=== PATIENT | female | born 1970 | race Caucasian/White ===

== ENCOUNTER 2017-02-12 07:41 | Inpatient (IN) ==
[2017-02-12] MEDS ORDERED: DICYCLOMINE 20 MG/2 ML AMP IM ONE ×2 (08:08→08:41)
[2017-02-12] MEDS ORDERED: ONDANSETRON 4 MG/2 ML VIAL IV STA (08:08)
[2017-02-12] MEDS ORDERED: METOCLOPRAMIDE 10 MG/2 ML VIAL IV STA (08:08)
[2017-02-12] MEDS ORDERED: SODIUM CHLORIDE 0.9% 1,000 ML IV STA (08:08)
[2017-02-12] MEDS ORDERED: PANTOPRAZOLE 40 MG VIAL IV STA (08:08)
[2017-02-12] MEDS ORDERED: metroNIDAZOLE INJ 500 MG in PREMIX 1 EACH IV STA (08:08)
--- NOTE | 2017-02-12 08:13 | Emergency Department Note ---
Arrival - Arrival Chief Complaint: Abdominal / Flank Pain Stated Complaint: abd pain/n/v ED Nursing Triage Note: c/o having abd.pain since tuesday., states went to see SOFTWARE ENGINEER antoine on Tuesday and had labs done., states still did not feel good on tuesday., states on tuesday she was called and told that had a high white count of 15 and was told to come back in on tue., states went back in on tue. had h- pylori test and it was negative., was started on pcn., states her abd. is swelling and bloating., states she is still having nausea and vomiting., + diarrhea., temp up to 101 at home., Mode of Arrival: Ambulatory Limitations: No Limitations Source: Patient Time Seen by Provider: 02/12/17 08:08 - History of Present Illness HPI Narrative: This 46-year-old white female presents with one-week of nausea, intermittent vomiting, generalized crampy abdominal pain, and several loose stools a day. She denies melena, bright red blood in the stool, history of inflammatory bowel disease, history of pancreatitis, gallbladder problems, or peptic ulcer disease. She does have in the last week a negative H. pylori serology. She was seen by her nurse practitioner several days ago who began her on penicillin and obtained the negative H. pylori test. At that time she states she was told she had a white count of 15,000. She states she has had shaking chills and spiked temperatures up to 101 at home. Currently she is in no acute medical distress although uncomfortable. Onset (ago): week(s) (Patient presents 1 week post onset of symptoms) Allergies/Adverse Reactions: Allergies Allergy/AdvReac Type Severity Reaction Status Date / Time No Known Allergies Allergy Unverified 02/12/17 07:50 Home Medications: Home Medications Medication Instructions Recorded Confirmed Type Loratadine Tab [Claritin Tab] 10 mg PO DAILY 02/12/17 02/12/17 History Omeprazole [Prilosec] 20 mg PO DAILY 02/12/17 02/12/17 History Penicillin Vk Tab 500 mg PO TID 02/12/17 02/12/17 History Review of System - Review of System 12 point system: reviewed and no additional remarkable complaints except as stated - Review of System Constitutional: Present: as per HPI Gastrointestinal: Present: as per HPI Medical,Surgical,& Family Hx - Medical History Neurology: History of: Migraine - Social History Smoking Status: Never smoker Frequency of Alcohol Use: None Type of Drug Use: None Exam Physical Examination: GENERAL: Well developed, well nourished white female in no acute distress. HEENT: Normocephalic. No trauma. Moist mucous membranes. EOMI. PERRLA. ENT NML NECK: Supple. No adenopathy. CARDIAC: Regular. No murmurs. Heart rate 80 CHEST: Clear to auscultation. No respiratory distress. O2 sat 90% ABDOMEN: Soft. Diffusely tender. Hyperactive bowel sounds. EXTREMITIES: No trauma. Normal ROM. No pedal edema. SKIN: No diaphoresis. No rash. NEURO: Alert. Neuro intact per no focal deficits. Vital Signs: Vital Signs Temperature 98.9 F 02/12/17 07:44 Pulse Rate 79 02/12/17 07:44 Respiratory Rate 16 02/12/17 07:44 Blood Pressure 104/85 02/12/17 07:44 O2 Sat by Pulse Oximetry 99 02/12/17 07:44 Course - Reevaluation(s) Reevaluation #1: Discussed with patient the need for hospitalization given the appearance on CT of most likely diverticulitis with associated abscess. - Consultations Consultation #1: Discussed with radiologist findings on CT and he felt the patient had either diverticulitis with abscess formation or a Crohn's variant. Consultation #2: Discussed with Dr. Liao who will admit the patient for further evaluation treatment. Results - Labs CBC & BMP: 02/12/17 08:17 02/12/17 08:17 Labs: I reviewed the laboratory noted the borderline white blood cell count as well as the elevated lactic acid. - Diagnostic Findings Procedure: CT Abdomen and Pelvis: image reviewed by me, report reviewed by me ( Evidence of diverticulitis with abscess formation versus a Crohn's variant) Disposition Clinical Impression: Diverticulitis with abscess Case discussed with: patient, patient's family Disposition: Still a Patient Condition: Stable Time of Disposition: 11:47
[2017-02-12] MEDS ORDERED: PANTOPRAZOLE 40 MG VIAL IV ONE (08:32)
[2017-02-12] MEDS ORDERED: ONDANSETRON 4 MG/2 ML VIAL ONE (08:32)
[2017-02-12] MEDS ORDERED: METOCLOPRAMIDE 10 MG/2 ML VIAL ONE (08:32)
[2017-02-12] MEDS ORDERED: metroNIDAZOLE 500 MG/100 ML PREMIX IV ONE (08:33)
[2017-02-12 08:38] LABS: Basophils % 0.3 % (0.0-0.8); Eosinophils # 0.1 10*3/uL (0.0-0.87); Eosinophils % 0.5 % (0.00-10.9); Hematocrit 43.4 VOL% (35.7-47.0); Hemoglobin 15.1 GM/DL (12.0-16.0); Immature Granulocytes % 0.7 %; Immature Granulocytes Absolute 0.08 #; Lymphocytes # 1.1 10*3/uL (1.4-4.0); Lymphocytes % 10.1 % (21.3-54.2); Mean Corpuscular HGB Conc 34.8 GM/DL (32-36); Mean Corpuscular Hemoglobin 33 PG (27-34); Mean Corpuscular Volume 93.3 FL (87-102); Mean Platelet Volume 9.8 FL (9.6-12.0); Monocytes # 0.7 10*3/uL (0.11-0.8); Monocytes % 6.1 % (1.7-12.7); Neutrophils # 9.1 10*3/uL (1.4-7.4); Neutrophils % 82.3 % (38.7-73.9); Platelet Count 270 T/CUMM (130-400); Red Blood Count 4.65 MC/CUMM (3.8-5.5); Red Cell Distribution Width 11.9 % (9.3-17.3); White Blood Count 11.1 T/CUMM (4-12)
[2017-02-12 08:55] LABS: Lactic Acid 3.2 MMOL/L (0.4-2.0)
[2017-02-12 09:05] LABS: Troponin I Only < 0.015 NG/ML (0.00-0.045)
[2017-02-12 09:06] LABS: Albumin 3.4 G/DL (3.4-5.0); Bilirubin,Total 0.4 MG/DL (0.2-1.0); Calcium 8.9 MG/DL (8.5-10.1); Osmolality,Calculated 283.1 MOS/KG (273-304); Potassium 4.1 MMOL/L (3.5-5.1); Total Protein 6.9 G/DL (6.4-8.3)
[2017-02-12 09:12] LABS: Apearance,Urine Slightly Hazy (Clear); Bacteria,Urine Occasional /HPF (Few); Bilirubin,Urine Negative (Negative); Blood, Urine Negative (Negative); Glucose,Urine (UA) Negative (Negative); Hyaline Casts,Urine 1 /LPF (0-3); Ketones,Urine 20 mg/dL (Negative); Mucus,Urine Many /LPF (Occasional); Nitrite,Urine Negative (Negative); Protein,Urine Negative; RBC,Urine 3 /HPF (0-4); Squamous Epithelial Cell,Urine Occasional /HPF (0-10); Urine Color Yellow (Yellow); Urine Specific Gravity 1.021 (1.001-1.035); WBC,Urine 8 /HPF (0-6)
--- NOTE | 2017-02-12 11:07 | CT Report ---
CT abdomen pelvis Indication: Abdominal and pelvic pain Comparison: None available Technique: Axial CT imaging of the abdomen and pelvis is performed with intravenous and oral contrast. Contrast dose is 100 cc of Omnipaque 350. Findings: Cardiac and lung bases are within normal limits CT abdomen: Small amount of perihepatic and perisplenic fluid is seen. Otherwise the liver spleen pancreas and adrenal glands are normal in size and enhancement. No evidence of focal lesion is demonstrated in these solid organs. Kidneys are normal in size and enhancement. No evidence of hydronephrosis or nephrolithiasis is seen. Prominent loops of ileum are present this extends into the pelvis and involves terminal ileum. Small amount of free fluid is seen in the paracolic gutters. Proximal bowel caliber is normal and no wall thickening or adjacent inflammatory change is seen. No evidence of free fluid or free air is present. CT pelvis: Multiple diverticula are present in the sigmoid colon with some wall thickening and adjacent stranding. Small pockets of low density are present between the sigmoid colon and ileum, the largest pocket is estimated 1.4 cm in size. Small amount of free fluid is seen in the pelvis. Bladder shows no evidence of abnormality. The pelvic organs show no evidence of abnormality Impression: Diverticulitis as described above. Small pocket of fluid 1.4 cm in size is present between the sigmoid colon and ileum. The ileum is moderately distended and thickened. This CT exam was performed using one or more the following dose reduction techniques: Automated exposure control, adjustment of the MA and/or KV according to patient size, or use of iterative reconstruction technique. PROCEDURE INTERPRETED AT [facility] [place] DEPARTMENT OF RADIOLOGY Final Report Signed by: Dr. Justice Soria
[2017-02-12] MEDS ORDERED: ALUM/MAG/SIMETH/LIDO VISC 1:1 30 ML BOTTLE PO ONE (11:15)
[2017-02-12] MEDS ORDERED: HYDROmorphone 2 MG/1 ML VIAL IV PRN (11:49)
[2017-02-12] MEDS: CIPROFLOXACIN INJ 400 MG in PREMIX 1 EACH IV SCH ×2 (13:26→23:00)
[2017-02-12] MEDS: SODIUM CHLORIDE 0.45% 1,000 ML IV SCH (13:26)
[2017-02-12] MEDS: METOCLOPRAMIDE 10 MG/2 ML VIAL IV SCH ×3 (13:27→22:59)
[2017-02-12] MEDS: metroNIDAZOLE INJ 500 MG in PREMIX 1 EACH IV SCH ×2 (15:33→21:11)
--- NOTE | 2017-02-12 17:11 | General Surg History&Physical ---
Assessment and Plan (1) Diverticulitis of large intestine with abscess Status: Acute Assessment and plan: Impression: Sigmoid diverticulitis with small abscess next Plan: I reviewed the lab work CT images and report. She has diverticular disease. Small bowel looks abnormal and dilated which may be reactive to the inflammatory process. She appears to be tolerating clear liquids currently. She will go slow with these. Will admit her for antibiotics and monitor and hopefully be able to avoid surgery. Current Visit: Yes History of Present Illness Chief complaint: Abdominal pain History of present illness: Ms. Rankin is a 46 year old female who is in her normal state of good health until Tuesday when she began to experience epigastric and suprapubic abdominal pain. She also had diarrhea. The following day she developed a fever. She was checked for H. pylori and started on antibiotics as an outpatient of what I believe was penicillin but did not improve. She came to the emergency room because the pain worsened. CT scan performed and was suspicious for diverticulitis with a small abscess. [place] and since her admission she says her pain has improved. She is on a clear liquid diet and had some nausea and vomiting yesterday but none today and she is tolerating it well. She is never had any bloody bowel movements or any irregular bowel movements or any chronic abdominal pain. Home Medications Medication Instructions Recorded Confirmed Type Loratadine Tab [Claritin Tab] 10 mg PO DAILY 02/12/17 02/12/17 History Omeprazole [Prilosec] 20 mg PO DAILY 02/12/17 02/12/17 History Penicillin Vk Tab 500 mg PO TID 02/12/17 02/12/17 History Allergies Allergy/AdvReac Type Severity Reaction Status Date / Time No Known Allergies Allergy Unverified 02/12/17 07:50 Medical,Surgical,& Family Hx - Medical History Cardio: Comment Only: Cardiovascular Problems (had palpitations and used to take meds , subsided since) Neurology: History of: Migraine HEENT: History of: Eye Problem (wears glasses) Musculoskeletal: No history of: Amputation Reproductive: History of: Ectopic - Surgical History Cardiac Surgeries: Patient Denies: Cardiac Catheterization Thoracic Surgeries: Patient denies;: Organ Transplant, Lobectomy Neurologic Surgeries: Patient denies: Neurologic Surgery HEENT Surgeries: Patient denies: Eye Surgery, Tonsilectomy & Adenoidectomy Abdominal Surgeries: Surgical HX of: Abdominal Surgery, Cholecystectomy Reproductive Surgeries: Surgical HX of;: Breast Surgery, Section, Dilation and Curettage, Tubal Ligation Patient denies;: Genitourinary Surgery - Social History Smoking Status: Never smoker Frequency of Alcohol Use: None Type of Drug Use: None Exam - Constitutional Vitals: Period Temp Pulse Resp BP Sys/Matute Pulse Ox Last 24 Hr 98.3 F-99.3 F 65-85 16-18 100-108/66-70 95-97 General appearance: no acute distress - Head Head exam: Present: normocephalic - ENT Mouth exam: Present: normal external inspection - Neck Neck exam: Present: normal inspection - Respiratory Respiratory exam: Present: clear to auscultation bilaterally - Cardiovascular Cardiovascular exam: Present: RRR - GI/Abdominal GI/Abdominal exam: Present: soft (Moderate tenderness to palpation in suprapubic area. Other areas of the abdomen are nontender. She is nondistended. No peritoneal signs.) - Extremities Exam Extremities exam: Present: normal inspection - Back Exam Back exam: Present: normal inspection - Neurological Exam Neurological exam: Present: alert, oriented X3 Speech: Present: normal - Skin Skin exam: Present: normal color Results - Labs CBC & BMP: 02/12/17 08:17 02/12/17 08:17 Lab Results: I have reviewed the past 24 hour labs
[2017-02-12] MEDS: ONDANSETRON 4 MG/2 ML VIAL IV PRN (21:11)
[2017-02-13] MEDS: SODIUM CHLORIDE 0.45% 1,000 ML IV SCH ×3 (01:01→09:30)
[2017-02-13] MEDS: metroNIDAZOLE INJ 500 MG in PREMIX 1 EACH IV SCH ×4 (03:49→20:50)
[2017-02-13] MEDS: CIPROFLOXACIN INJ 400 MG in PREMIX 1 EACH IV SCH ×3 (05:56→21:57)
[2017-02-13] MEDS: METOCLOPRAMIDE 10 MG/2 ML VIAL IV SCH ×4 (05:57→23:45)
[2017-02-13 06:47] LABS: Basophils # 0.1 10*3/uL (0.0-0.2); Basophils % 0.5 % (0.0-0.8); Eosinophils # 0.3 10*3/uL (0.0-0.87); Eosinophils % 2.4 % (0.00-10.9); Hematocrit 35.3 VOL% (35.7-47.0); Hemoglobin 12.7 GM/DL (12.0-16.0); Immature Granulocytes % 1.2 %; Immature Granulocytes Absolute 0.12 #; Lymphocytes # 2.3 10*3/uL (1.4-4.0); Lymphocytes % 22.2 % (21.3-54.2); Mean Corpuscular Hemoglobin 33 PG (27-34); Mean Corpuscular Volume 92.7 FL (87-102); Mean Platelet Volume 10.1 FL (9.6-12.0); Monocytes # 0.8 10*3/uL (0.11-0.8); Monocytes % 7.6 % (1.7-12.7); Neutrophils # 6.8 10*3/uL (1.4-7.4); Neutrophils % 66.1 % (38.7-73.9); Platelet Count 253 T/CUMM (130-400); Red Blood Count 3.81 MC/CUMM (3.8-5.5); White Blood Count 10.4 T/CUMM (4-12)
[2017-02-13 07:23] LABS: Calcium 8.1 MG/DL (8.5-10.1); Potassium 3.9 MMOL/L (3.5-5.1)
[2017-02-13] MEDS: ACETAMINOPHEN 325 MG TABLET PO PRN (11:34)
--- NOTE | 2017-02-13 11:43 | General Surgery Progress Note ---
Assessment and Plan (1) Diverticulitis of large intestine with abscess Status: Acute Assessment and plan: Impression: Sigmoid diverticulitis with small abscess next Plan: Patient would like to try regular diet. We will advance her diet. Continue antibiotics. Possibly home in the day or 2 if she continues to improve. Current Visit: Yes Subjective Patient reports: Present: no new complaints Narrative: Patient is feeling better. She tolerated clears with some nausea last night but none today. Overall she is feeling much better. She has had 2 loose bowel movements this morning. Exam - Constitutional Vitals: Period Temp Pulse Resp BP Sys/Matute Pulse Ox Last 24 Hr 97.9 F-99.5 F 61-85 12-18 100-112/65-75 95-97 General appearance: no acute distress - Head Head exam: Present: normocephalic - ENT Mouth exam: Present: normal external inspection - Neck Neck exam: Present: normal inspection - Respiratory Respiratory exam: Present: clear to auscultation bilaterally - Cardiovascular Cardiovascular exam: Present: RRR - GI/Abdominal GI/Abdominal exam: Present: soft (Moderate suprapubic tenderness mildly improved , no peritoneal signs) - Extremities Exam Extremities exam: Present: normal inspection - Neurological Exam Neurological exam: Present: alert, oriented X3 Speech: Present: normal - Skin Skin exam: Present: normal color Results - Labs CBC & BMP: 02/13/17 05:56 02/13/17 05:56 Lab Results: I have reviewed the past 24 hour labs
[2017-02-13] MEDS: ONDANSETRON 4 MG/2 ML VIAL IV PRN (12:11)
[2017-02-14] MEDS: metroNIDAZOLE INJ 500 MG in PREMIX 1 EACH IV SCH ×4 (02:48→20:45)
[2017-02-14] MEDS: SODIUM CHLORIDE 0.45% 1,000 ML IV SCH (02:49)
[2017-02-14] MEDS: METOCLOPRAMIDE 10 MG/2 ML VIAL IV SCH ×4 (05:46→23:00)
[2017-02-14] MEDS: CIPROFLOXACIN INJ 400 MG in PREMIX 1 EACH IV SCH ×3 (05:47→22:50)
--- NOTE | 2017-02-14 09:51 | General Surgery Progress Note ---
Assessment and Plan (1) Diverticulitis of large intestine with abscess Status: Acute Assessment and plan: Continues to improve. Continue IV abx and diet as tolerated. D/c IVF. Repeat labs in am and monitor an additional day. DVT ppx: SCD. Hold lovenox with drop in H/H - likely dilutional. Mobilizing encouraged and pt is tolerating. GI ppx: PPI daily Dispo: anticipate home tomorrow with expected continued clinical improvement Current Visit: Yes Subjective Patient reports: Present: no new complaints, pain is less, tolerating a regular diet, voiding w/o difficulty (Persistent loose stools - 3-4 in 24 hrs. No hematochezia or melena. ), afebrile Exam - Constitutional Vitals: Period Temp Pulse Resp BP Sys/Matute Pulse Ox Last 24 Hr 97.7 F-99.6 F 50-69 12-20 92-112/66-77 93-99 General appearance: no acute distress - Head Head exam: Present: normal inspection, normocephalic, atraumatic - Eye Eye exam: Absent: conjunctival injection, scleral icterus - Neck Neck exam: Present: trachea midline - Respiratory Respiratory exam: Present: clear to auscultation bilaterally - Cardiovascular Cardiovascular exam: Present: RRR - GI/Abdominal GI/Abdominal exam: Present: normal bowel sounds, tenderness (LLQ - suprapubic minimal tenderness; no palpable lmass), soft. Absent: distended, guarding - Extremities Exam Extremities exam: Absent: edema - Neurological Exam Neurological exam: Present: alert, oriented X3 - Skin Skin exam: Present: normal color, warm Results - Labs CBC & BMP: 02/13/17 05:56 02/13/17 05:56 Labs: Urine culture 20-30K gram negative rods Quality Measures - VTE Contraindication to Pharmacological VTE Prophylaxis: High Risk of Bleeding
[2017-02-14] MEDS: ACETAMINOPHEN 325 MG TABLET PO PRN (10:18)
[2017-02-14] MEDS: PANTOPRAZOLE 40 MG TABLET PO SCH (10:18)
[2017-02-15] MEDS: metroNIDAZOLE INJ 500 MG in PREMIX 1 EACH IV SCH ×2 (03:54→09:12)
[2017-02-15 03:56] LABS: Basophils % 0.5 % (0.0-0.8); Eosinophils # 0.3 10*3/uL (0.0-0.87); Eosinophils % 3.3 % (0.00-10.9); Hematocrit 33.4 VOL% (35.7-47.0); Hemoglobin 11.5 GM/DL (12.0-16.0); Immature Granulocytes % 2.1 %; Immature Granulocytes Absolute 0.17 #; Lymphocytes # 2.3 10*3/uL (1.4-4.0); Lymphocytes % 28.7 % (21.3-54.2); Mean Corpuscular HGB Conc 34.4 GM/DL (32-36); Mean Corpuscular Hemoglobin 32 PG (27-34); Mean Corpuscular Volume 91.8 FL (87-102); Mean Platelet Volume 10.1 FL (9.6-12.0); Monocytes # 0.7 10*3/uL (0.11-0.8); Monocytes % 8.1 % (1.7-12.7); Neutrophils # 4.7 10*3/uL (1.4-7.4); Neutrophils % 57.3 % (38.7-73.9); Platelet Count 236 T/CUMM (130-400); Red Blood Count 3.64 MC/CUMM (3.8-5.5); Red Cell Distribution Width 11.9 % (9.3-17.3); White Blood Count 8.1 T/CUMM (4-12)
[2017-02-15] MEDS: CIPROFLOXACIN INJ 400 MG in PREMIX 1 EACH IV SCH (05:01)
[2017-02-15] MEDS: METOCLOPRAMIDE 10 MG/2 ML VIAL IV SCH (05:02)
--- NOTE | 2017-02-15 08:56 | Discharge Summary ---
Hospital Course - Hospital Course Hospital Course: 46 y/o female admitted with initial diverticulitis flare. She responded well to IV abx. Ultimately discharged home in good condition with single loose stool in past 24 hrs, tolerating PO intake and activity without difficulty, and voiding without difficulty. Pain adequately controlled. No complications to note. Pt will f/u and further discuss elective removal of diseased colon. Diagnosis - Discharge Diagnosis (1) Diverticulitis of large intestine with abscess Status: Acute Specialty Discharge - Follow Up or Referrals Follow up with: Roman Dunbar MD [Physician] - 2 Weeks Discharge Plan - Discharge Data Disposition: Disch To Home/Self Care Condition at Discharge: Stable Discharge Diet: other (See attached) Activity: resume usual activities as tolerated Driving: other (No driving while taking narcotics) Contact your physician if you experience:: fever over 101, Difficulty voiding, Redness or swelling, Nausea/Vomiting, Shortness of breath, Bleeding, pain uncontrolled by pain medications - Discharge Medications New Ciprofloxacin Tab [Cipro Tab] 500 mg PO BID #28 tablet RX: HYDROcodone/ACETAMIN 7.5-325 [[place] 7.5-325] 1 tablet PO Q4H PRN #20 tablet PRN Reason: Pain Moderate To Severe (4-10) metroNIDAZOLE TAB [Flagyl Cap/Tab] 500 mg PO TID #42 tablet Continue RX: Loratadine Tab [Claritin Tab] 10 mg PO DAILY RX: Omeprazole [Prilosec] 20 mg PO DAILY Discontinued RX: Penicillin Vk Tab 500 mg PO TID - Follow Up or Referral Follow Up: Roman Dunbar MD [Physician] - 2 Weeks - Forms/Instructions Instructions: Diverticulitis (DC), Diverticulitis Diet (DC) Exam - Constitutional Vitals: Period Temp Pulse Resp BP Sys/Matute Pulse Ox Last 24 Hr 98.1 F-98.8 F 45-77 16-20 99-115/64-77 97-100 General appearance: no acute distress - Head Head exam: Present: normal inspection, normocephalic, atraumatic - Eye Eye exam: Absent: conjunctival injection, scleral icterus - Respiratory Respiratory exam: Present: clear to auscultation bilaterally - Cardiovascular Cardiovascular exam: Present: regular rate and rhythm - GI/Abdominal GI/Abdominal exam: Present: normal bowel sounds, tenderness (minimal suprapubic) , soft. Absent: distended, firm - Extremities Exam Extremities exam: Absent: calf tenderness, edema - Neurological Exam Neurological exam: Present: alert, oriented X3 - Psychiatric Psychiatric exam: Present: normal affect, normal mood Discharge Results Procedures and tests throughout hospitalization: Urine culture: 20-30K klebsiella - sensitive to cipro Labs on day of discharge: Labs from last 24 hours 02/15/17 03:33 WBC 8.1 RBC 3.64 L Hgb 11.5 L Hct 33.4 L MCV 91.8 MCH 32 MCHC 34.4 RDW 11.9 Plt Count 236 MPV 10.1 Neut % (Auto) 57.3 Lymph % (Auto) 28.7 [place]clain % (Auto) 8.1 Eos % (Auto) 3.3 Baso % (Auto) 0.5 Neut # (Auto) 4.7 Lymph # (Auto) 2.3 [place]clain # (Auto) 0.7 Eos # (Auto) 0.3 Baso # (Auto) 0.0 Immature Gran % 2.1 Nucleated RBC % 0.0 Immature Gran # 0.17 Nucleated RBCs # 0.00 DS: Provider Date of admission: 02/12/17 11:48 Primary care physician: . No PCP Attending physician on admission: Roman Dunbar MD Discharging clinician: Yessi Ortiz PA-C
[2017-02-15] MEDS: PANTOPRAZOLE 40 MG TABLET PO SCH (09:09)
[2017-02-15 11:31] VITALS: BP 119/70
== END 2017-02-15 11:31 | disposition home or self-care (01) | DRG 392 ==
LOC: N.ED 07:41 → N.EDINP 11:48 → N.3E 12:58
PROVIDERS: ADMIT Surgery; ATTEND Surgery

== ENCOUNTER 2017-12-06 05:58 | Inpatient (IN) ==
[2017-11-28 16:09] LABS: Basophils # 0.1 10*3/uL (0.0-0.2); Basophils % 0.7 % (0.0-0.8); Eosinophils # 0.1 10*3/uL (0.0-0.87); Eosinophils % 1.4 % (0.00-10.9); Hemoglobin 14.6 GM/DL (12.0-16.0); Immature Granulocytes Absolute 0.08 #; Lymphocytes # 2.3 10*3/uL (1.4-4.0); Lymphocytes % 28.9 % (21.3-54.2); Mean Corpuscular HGB Conc 34.8 GM/DL (32-36); Mean Corpuscular Hemoglobin 32 PG (27-34); Mean Corpuscular Volume 92.9 FL (87-102); Mean Platelet Volume 10.3 FL (9.6-12.0); Monocytes # 0.5 10*3/uL (0.11-0.8); Monocytes % 6.1 % (1.7-12.7); Neutrophils % 61.9 % (38.7-73.9); Platelet Count 247 T/CUMM (130-400); Red Blood Count 4.52 MC/CUMM (3.8-5.5)
[2017-11-28 16:42] LABS: Albumin 4.5 G/DL (3.4-5.0); Bilirubin,Total 0.5 MG/DL (0.2-1.0); Calcium 9.3 MG/DL (8.5-10.1); Osmolality,Calculated 273.5 MOS/KG (273-304); Potassium 4.8 MMOL/L (3.5-5.1)
[2017-12-06] MEDS ORDERED: DIAZEPAM 5 MG TABLET PO ONE ×2 (06:00→07:04)
[2017-12-06] MEDS ORDERED: ALVIMOPAN 12 MG CAPSULE PO ONE (06:00)
[2017-12-06] MEDS ORDERED: FAMOTIDINE 20 MG TABLET PO ONE (06:00)
[2017-12-06] MEDS ORDERED: ERTAPENEM IV ONE (06:00)
[2017-12-06] MEDS ORDERED: FAMOTIDINE 20 MG TABLET ONE (06:12)
[2017-12-06] MEDS ORDERED: ERTAPENEM 1,000 MG VIAL ONE (06:12)
[2017-12-06] MEDS ORDERED: ALVIMOPAN 12 MG CAPSULE ONE ×2 (06:12→06:44)
[2017-12-06] MEDS ORDERED: DIAZEPAM 5 MG TABLET ONE ×2 (06:42→07:08)
[2017-12-06] MEDS: LACTATED RINGERS 1,000 ML IV SCH ×5 (06:46→16:15)
[2017-12-06] MEDS ORDERED: TISSUE ADHESIVE 1 EACH APPLICATOR TOP ONE (08:54)
[2017-12-06] MEDS ORDERED: SEVOFLURANE 1 UNIT/15 MINUTE INH ONE (14:08)
[2017-12-06] MEDS ORDERED: fentaNYL 100 MCG/2 ML VIAL ONE (14:08)
[2017-12-06] MEDS ORDERED: MIDAZOLAM 2 MG/2 ML VIAL ONE (14:08)
[2017-12-06] MEDS ORDERED: PROPOFOL 200 MG/20 ML VIAL IV ONE (14:08)
[2017-12-06] MEDS ORDERED: ACETAMINOPHEN 1,000 MG/100 ML VIAL IV ONE (14:09)
[2017-12-06] MEDS ORDERED: LACTATED RINGERS 2,000 ML IV ONE (14:09)
[2017-12-06] MEDS ORDERED: KETOROLAC 30 MG/1 ML VIAL ONE (14:09)
[2017-12-06] MEDS ORDERED: ROCURONIUM 100 MG/10 ML VIAL IV ONE (14:09)
[2017-12-06] MEDS ORDERED: GLYCOPYRROLATE 0.4 MG/2 ML VIAL ONE (14:09)
[2017-12-06] MEDS ORDERED: HYDROmorphone 2 MG/1 ML VIAL IV PRN ×2 (15:03→15:45)
[2017-12-06] MEDS ORDERED: ONDANSETRON 4 MG/2 ML VIAL IV PRN ×2 (15:03→15:45)
[2017-12-06] MEDS ORDERED: ONDANSETRON 4 MG/2 ML VIAL ONE (15:04)
[2017-12-06] MEDS ORDERED: HYDROmorphone 2 MG/1 ML VIAL ONE (15:04)
[2017-12-06] MEDS ORDERED: PROMETHAZINE 25 MG/1 ML VIAL IM PRN (15:45)
[2017-12-06] MEDS: KETOROLAC 15 MG/1 ML VIAL IV SCH ×2 (16:15→21:30)
[2017-12-06] MEDS ORDERED: [UNRECOGNIZED DRUG - OTHER] PO SCH (21:00)
[2017-12-06] MEDS: ALVIMOPAN 12 MG CAPSULE PO SCH (21:30)
[2017-12-07] MEDS: LACTATED RINGERS 1,000 ML IV SCH (01:25)
[2017-12-07] MEDS: KETOROLAC 15 MG/1 ML VIAL IV SCH ×2 (04:28→09:51)
[2017-12-07 05:57] LABS: Basophils # 0.1 10*3/uL (0.0-0.2); Basophils % 0.4 % (0.0-0.8); Eosinophils % 0.3 % (0.00-10.9); Hematocrit 32.8 VOL% (35.7-47.0); Hemoglobin 11.1 GM/DL (12.0-16.0); Immature Granulocytes % 0.6 %; Immature Granulocytes Absolute 0.07 #; Lymphocytes # 1.8 10*3/uL (1.4-4.0); Lymphocytes % 14.9 % (21.3-54.2); Mean Corpuscular HGB Conc 33.8 GM/DL (32-36); Mean Corpuscular Hemoglobin 32 PG (27-34); Mean Corpuscular Volume 95.3 FL (87-102); Mean Platelet Volume 10.5 FL (9.6-12.0); Monocytes % 8.4 % (1.7-12.7); Neutrophils # 8.8 10*3/uL (1.4-7.4); Neutrophils % 75.4 % (38.7-73.9); Platelet Count 179 T/CUMM (130-400); Red Blood Count 3.44 MC/CUMM (3.8-5.5); Red Cell Distribution Width 12.3 % (9.3-17.3); White Blood Count 11.7 T/CUMM (4-12)
[2017-12-07] MEDS ORDERED: ENOXAPARIN 40 MG/0.4 ML SYRINGE SUBCUT SCH (07:50)
[2017-12-07 07:51] LABS: Osmolality,Calculated 276.4 MOS/KG (273-304)
[2017-12-07] MEDS ORDERED: LORATADINE 10 MG TABLET PO SCH (09:00)
[2017-12-07] MEDS: ALVIMOPAN 12 MG CAPSULE PO SCH (09:51)
[2017-12-07 11:00] VITALS: BP 90/57
[2017-12-07 12:09] LABS: Hematocrit 36.7 VOL% (35.7-47.0); Hemoglobin 12.3 GM/DL (12.0-16.0)
== END 2017-12-07 14:40 | disposition home or self-care (01) | DRG 331 ==
LOC: N.OR 05:58 → N.SDSINP 06:00 → N.3E 13:48
PROVIDERS: ADMIT Surgery; ATTEND Surgery

== ENCOUNTER 2021-08-22 19:09 | Observation (INO) ==
[2021-08-22] MEDS ORDERED: ASPIRIN 325 MG TABLET PO STA (20:01)
[2021-08-22] MEDS ORDERED: ONDANSETRON 4 MG/2 ML VIAL IV STA (20:01)
[2021-08-22] MEDS ORDERED: SODIUM CHLORIDE 0.9% 1,000 ML IV STA (20:01)
[2021-08-22 20:14] LABS: Basophils % 0.2 % (0.0-0.8); Eosinophils % 0.1 % (0.00-10.9); Hematocrit 37.7 VOL% (35.7-47.0); Hemoglobin 13.3 GM/DL (12.0-16.0); Immature Granulocytes % 0.5 %; Immature Granulocytes Absolute 0.07 #; Lymphocytes # 1.5 10*3/uL (1.4-4.0); Lymphocytes % 11.7 % (21.3-54.2); Mean Corpuscular HGB Conc 35.3 GM/DL (32-36); Mean Corpuscular Volume 90.2 FL (87-102); Mean Platelet Volume 9.8 FL (9.6-12.0); Monocytes % 4.4 % (1.7-12.7); Neutrophils % 83.1 % (38.7-73.9); Platelet Count 286 T/CUMM (130-400); Red Blood Count 4.18 MC/CUMM (3.8-5.5); Red Cell Distribution Width 11.6 % (9.3-17.3); White Blood Count 13.1 T/CUMM (4-12)
[2021-08-22 20:20] LABS: Calcium 8.4 MG/DL (8.5-10.1); Osmolality,Calculated 239.3 MOS/KG (273-304); Potassium 3.6 MMOL/L (3.5-5.1)
[2021-08-22] MEDS ORDERED: MAGNESIUM SULF RIDER 2 GM/50 ML PREMIX IV ONE (20:32)
[2021-08-22 20:57] LABS: Free T4 (Free Thyroxine) 1.09 NG/DL (0.76-1.46); Thyroid Stimulating Hormone 0.855 uIU/ml (0.358-3.74)
[2021-08-22] MEDS ORDERED: PROMETHAZINE INJ 12.5 MG in SODIUM CHLORIDE 0.9% 50 ML IV PRN (22:41)
[2021-08-22] MEDS ORDERED: PROMETHAZINE 25 MG/1 ML VIAL ONE (22:56)
[2021-08-22] MEDS ORDERED: SODIUM CHLORIDE 0.9% 1,000 ML IV SCH (23:00)
[2021-08-23 01:39] LABS: Basophils % 0.2 % (0.0-0.8); Calcium 7.4 MG/DL (8.5-10.1); Eosinophils # 0.1 10*3/uL (0.0-0.87); Eosinophils % 0.9 % (0.00-10.9); Hematocrit 34.4 VOL% (35.7-47.0); Hemoglobin 12.2 GM/DL (12.0-16.0); Immature Granulocytes % 0.5 %; Immature Granulocytes Absolute 0.06 #; Lymphocytes # 1.6 10*3/uL (1.4-4.0); Lymphocytes % 13.9 % (21.3-54.2); Mean Corpuscular HGB Conc 35.5 GM/DL (32-36); Mean Corpuscular Volume 91.2 FL (87-102); Mean Platelet Volume 9.8 FL (9.6-12.0); Monocytes % 6.8 % (1.7-12.7); Neutrophils % 77.7 % (38.7-73.9); Osmolality,Calculated 241.9 MOS/KG (273-304); Platelet Count 246 T/CUMM (130-400); Potassium 3.6 MMOL/L (3.5-5.1); Red Blood Count 3.77 MC/CUMM (3.8-5.5); Red Cell Distribution Width 11.7 % (9.3-17.3); White Blood Count 11.8 T/CUMM (4-12)
[2021-08-23 07:51] LABS: Calcium 7.7 MG/DL (8.5-10.1); Osmolality,Calculated 264.2 MOS/KG (273-304); Potassium 3.8 MMOL/L (3.5-5.1)
[2021-08-23 07:58] LABS: Albumin 3.2 G/DL (3.4-5.0); Bilirubin,Direct 0.21 MG/DL (0.0-0.20); Bilirubin,Indirect 0.7 MG/DL (0.0-1.0); Bilirubin,Total 0.9 MG/DL (0.20-1.00); Total Protein 6.1 G/DL (6.4-8.2)
[2021-08-23] MEDS ORDERED: FLUTICASONE 50 MCG NASAL SPRAY 16 GM BOTTLE BOTH NARES SCH (09:00)
[2021-08-23] MEDS ORDERED: PANTOPRAZOLE 40 MG VIAL IV SCH (09:00)
[2021-08-23] MEDS ORDERED: ENOXAPARIN 40 MG/0.4 ML SYRINGE SUBCUT SCH (09:00)
[2021-08-23 10:05] LABS: Bacteria,Urine Occasional /HPF (Few); Bilirubin,Urine Negative (Negative); Blood, Urine Negative (Negative); Glucose,Urine (UA) Negative (Negative); Ketones,Urine Negative (Negative); Nitrite,Urine Negative (Negative); Protein,Urine Negative; Urine Appearance CLEAR (Clear); Urine Color Straw (Yellow); Urine Specific Gravity 1.001 (1.001-1.035); Urine Urobilinogen < 2.0 EU/DL (0.2-1.0)
[2021-08-23 12:24] VITALS: BP 104/62
[2021-08-23] MEDS ORDERED: RIMEGEPANT 75 MG PO PRN (12:50)
[2021-08-23] MEDS ORDERED: ONDANSETRON 4 MG TABLET PO PRN (12:50)
[2021-08-23] MEDS ORDERED: NON-FORMULARY MEDICATION (Turmeric Root Extract 500 mg Capsule) PO SCH (21:00)
[2021-08-23] MEDS ORDERED: POLYCARBOPHIL 625 MG TABLET PO SCH (21:00)
[2021-08-24] MEDS ORDERED: OMEGA 3 ACID ETHYL ESTERS 1 GM CAPSULE PO SCH (09:00)
[2021-08-24] MEDS ORDERED: CHOLECALCIFEROL 1,000 UNIT TABLET PO SCH (09:00)
[2021-08-24] MEDS ORDERED: GLUCOSAMINE 500 MG TABLET PO SCH (09:00)
== END 2021-08-23 13:13 | disposition home or self-care (01) ==
LOC: N.ED 19:09 → N.EDINP 19:09 → SUATTDRO 22:13 → N.TELEN 23:30
PROVIDERS: ADMIT Emergency Medicine; ATTEND Family Medicine